=== PATIENT | male | born 1975 | race Caucasian/White ===

== ENCOUNTER 2017-08-04 23:42 | Emergency (ER) | payer BC, OTHER ==
--- NOTE | 2017-08-05 | EDM.PDOC ---
ED HPI GENERAL MEDICAL PROBLEM - General Chief Complaint: ENT Problem Stated Complaint: SICK Time Seen by Provider: 08/04/17 23:52 - History of Present Illness INITIAL COMMENTS - FREE TEXT/NARRATIVE: HISTORY AND PHYSICAL: History of present illness: The patient is a 42-year-old male with no stated pulmonary history who presents with complaints of a sore throat and nasal congestion without drainage body aches and cough that started 3 days ago. 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 Patient has not had any nausea vomiting or diarrhea no abdominal pain and no chest pain or shortness of breath. Patient has had some body aches but no fevers. He did not get his flu shot this year. Patient has been eating and drinking normally Review of systems: As per history of present illness and below otherwise all systems reviewed and negative. Past medical history: As per history of present illness and as reviewed below otherwise noncontributory. Surgical history: As per history of present illness and as reviewed below otherwise noncontributory. Social history: No reported history of drug or alcohol abuse. Family history: As per history of present illness and as reviewed below otherwise noncontributory. Physical exam: Gen.: Well-developed well-nourished man who is nontoxic and speaking without hoarse voice or breathlessness but he does have some nasal quality. HEENT: Atraumatic, normocephalic, pupils reactive, negative for conjunctival pallor or scleral icterus, mucous membranes moist, throat clear of exudates but there is posterior oropharyngeal erythema, there is no cervical adenopathy or nuchal rigidity, neck supple, nontender, trachea midline. There is no discrete sinus tenderness on palpation Lungs: Clear to auscultation, breath sounds equal bilaterally, chest nontender. No work of breathing stridor or wheezing Heart: S1S2, regular rate and rhythm no overt murmurs Abdomen: Soft, nondistended, nontender. NABS Pelvis: Deferred Genitourinary: Deferred. Rectal: Deferred. Extremities: Atraumatic, negative for cords or calf pain. Neurovascular unremarkable. Neuro: Awake, alert, oriented. Cranial nerves II through XII unremarkable. Cerebellum unremarkable. Motor and sensory unremarkable throughout. Exam nonfocal. Diagnostics: Rapid strep influenza Therapeutics: [] I discussed the testing results with the patient and despite the negative strep test he does have significant findings on exam but I will go ahead and treat. I will give him an antibiotic prescription for Augmentin from [facility]. Impression: Viral URI/pharyngitis Definitive disposition and diagnosis as appropriate pending reevaluation and review of above. 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 [No Known Home Meds] 08/04/17 [History] Past Medical History - Past Health History Medical/Surgical History: Denies Medical/Surgical History HEENT History: Reports: Impaired Vision Other HEENT History: glasses Cardiovascular History: Reports: None Other Cardiovascular History: episode of afib in 1989- no problems since Respiratory History: Reports: None Gastrointestinal History: Reports: None Genitourinary History: Reports: Renal Calculus Musculoskeletal History: Reports: None Neurological History: Reports: Migraines Psychiatric History: Reports: None Endocrine/Metabolic History: Reports: None Hematologic History: Reports: None Immunologic History: Reports: None Oncologic (Cancer) History: Reports: None Dermatologic History: Reports: None - Infectious Disease History Infectious Disease History: Reports: None - Past Surgical History Male Surgical History: Reports: Kidney Stone Extraction Other Musculoskeletal Surgeries/Procedures:: ACL surgery left Social & Family History - Family History Family Medical History: Noncontributory Cardiac: Reports: [place] - Tobacco Use Smoking Status *Q: Never Smoker Second Hand Smoke Exposure: No - Caffeine Use Caffeine Use: Reports: Soda, Tea - Alcohol Use Days Per Week of Alcohol Use: 0 - Recreational Drug Use Recreational Drug Use: No ED ROS GENERAL - Review of Systems Review Of Systems: ROS reveals no pertinent complaints other than HPI. ED EXAM, GENERAL - Physical Exam Exam: See Below (See dictation) Course - Vital Signs Last Recorded V/S: Last Vital Signs Temp 36.6 C 08/04/17 23:47 Pulse 69 08/04/17 23:47 Resp 18 08/04/17 23:47 BP 143/66 H 08/04/17 23:47 Pulse Ox 96 08/04/17 23:47 - Orders/Labs/Meds Orders: Active Orders 24 hr Category Date Time Status CULTURE STREP A CONFIRMATION [RM] Stat Lab 08/04/17 00:14 Results STREP SCRN A RAPID W CULT CONF [RM] Stat Lab 08/04/17 00:14 Results Departure - Departure Time of Disposition: 00:58 Disposition: Home, Self-Care 01 Condition: Good Clinical Impression: Pharyngitis Qualifiers: Pharyngitis/tonsillitis etiology: unspecified etiology Qualified Code(s): J02.9 - Acute pharyngitis, unspecified - Discharge Information Referrals: PCP,None [Primary Care Provider] - Forms: ED Department Discharge Additional Instructions: The following information is given to patients seen in the emergency department who are being discharged to home. This information is to outline your options for follow-up care. We provide all patients seen in our emergency department with a follow-up referral. The need for follow-up, as well as the timing and circumstances, are variable depending upon the specifics of your emergency department visit. If you don't have a primary care physician on staff, we will provide you with a referral. We always advise you to contact your personal physician following an emergency department visit to inform them of the circumstance of the visit and for follow-up with them and/or the need for any referrals to a consulting specialist. The emergency department will also refer you to a specialist when appropriate. This referral assures that you have the opportunity for followup care with a specialist. All of these measure are taken in an effort to provide you with optimal care, which includes your followup. Under all circumstances we always encourage you to contact your private physician who remains a resource for coordinating your care. When calling for followup care, please make the office aware that this follow-up is from your recent emergency room visit. If for any reason you are refused follow-up, please contact the [facility] emergency department at and ask to speak to the emergency department charge nurse. [facility] Primary care- Internal Medicine and Family [address] [address] Please push hydration eat soft diet. Use [id number] Tylenol and ibuprofen for fever and body aches and please taken by medics you have been given tonight until they're finished. He'll be given a prescription of Augmentin from [facility]. Please call and follow-up in the clinic in the next few days for reevaluation further care and return to ER as needed and as discussed - My Orders Last 24 Hours: My Active Orders 08/04/17 00:14 CULTURE STREP A CONFIRMATION [RM] Stat STREP SCRN A RAPID W CULT CONF [] Stat - Assessment/Plan Last 24 Hours: My Active Orders 08/04/17 00:14 CULTURE STREP A CONFIRMATION [RM] Stat STREP SCRN A RAPID W CULT CONF [] Stat
[2017-08-05 01:15] VITALS: BP 133/79
== END 2017-08-05 01:09 | disposition home or self-care (01) ==
LOC: MW.ED 23:42
DX: J02.9 Acute pharyngitis, unspecified (principal)
CPT/HCPCS: 87081; 87804; 87880; 99283

== ENCOUNTER 2018-02-02 19:04 | Emergency (ER) | payer BC, OTHER ==
--- NOTE | 2018-02-02 19:40 | EDM.PDOC ---
ED HPI GENERAL MEDICAL PROBLEM - General Chief Complaint: Lower Extremity Injury/Pain Stated Complaint: PAIN LT LEG Time Seen by Provider: 02/02/18 19:40 Source of Information: Reports: Patient History Limitations: Reports: No Limitations - History of Present Illness INITIAL COMMENTS - FREE TEXT/NARRATIVE: HISTORY AND PHYSICAL: History of present illness: Anderson is a 42-year-old male here with left lower extremity injury. He reports that approximately 30 minutes prior to his arrival to the ED he was playing basketball, shot a ball then pushed off his left foot. When he did this he felt a pop in his left Achilles tendon that brought him down. He has been able to walk on it since but reports "something is definitely wrong." He states the pain is minimal at this time. [] Review of systems: As per history of present illness and below otherwise all systems reviewed and negative. Past medical history: As per history of present illness and as reviewed below otherwise noncontributory. Surgical history: As per history of present illness and as reviewed below otherwise noncontributory. Social history: No reported history of drug or alcohol abuse. Family history: As per history of present illness and as reviewed below otherwise noncontributory. Physical exam: General: patient sitting comfortably in no acute distress HEENT: Atraumatic, normocephalic, pupils reactive, negative for conjunctival pallor or scleral icterus, mucous membranes moist, throat clear, neck supple, nontender, trachea midline. Lungs: Clear to auscultation, breath sounds equal bilaterally, chest nontender. Heart: S1S2, regular, negative for clicks, rubs, or JVD. Extremities: Normal ankle plantarflexion with calf squeeze negative for cords or calf pain. No tenderness to palpation along the achilles tendon, no body tenderness along medial and lateral malleoli or posterior calcaneous. Patient is able to bear weight on left foot and walk on heels. Neurovascular unremarkable. Neuro: Awake, alert, oriented. Cranial nerves II through XII unremarkable. Cerebellum unremarkable. Motor and sensory unremarkable throughout. Exam nonfocal. Notes: Diagnostics: [x-ray left ankle] Therapeutics: [] Impression: [Achilles tendinitis] Plan: [#1 Ice, elevate, and motrin as discussed #2 Wear CAM boot and use crutches as directed #3 Follow up with ortho #4 Return to ED as needed as discussed ] Definitive disposition and diagnosis as appropriate pending reevaluation and review of above. left ankle Pain Score (Numeric/FACES): 3 - Related Data Allergies Allergy/AdvReac Type Severity Reaction Status Date / Time No Known Allergies Allergy Verified 02/02/18 19:10 Home Meds: Home Meds . [No Known Home Meds] 08/04/17 [History] Past Medical History - Past Health History Medical/Surgical History: Denies Medical/Surgical History HEENT History: Reports: Impaired Vision Other HEENT History: glasses Cardiovascular History: Reports: None Other Cardiovascular History: episode of afib in 1989- no problems since Respiratory History: Reports: None Gastrointestinal History: Reports: None Genitourinary History: Reports: Renal Calculus Musculoskeletal History: Reports: None Neurological History: Reports: Migraines Psychiatric History: Reports: None Endocrine/Metabolic History: Reports: None Hematologic History: Reports: None Immunologic History: Reports: None Oncologic (Cancer) History: Reports: None Dermatologic History: Reports: None - Infectious Disease History Infectious Disease History: Reports: Chicken Pox - Past Surgical History HEENT Surgical History: Reports: None Male Surgical History: Reports: Kidney Stone Extraction Other Musculoskeletal Surgeries/Procedures:: ACL surgery left Social & Family History - Family History Family Medical History: Noncontributory Cardiac: Reports: [place] - Tobacco Use Smoking Status *Q: Never Smoker - Caffeine Use Caffeine Use: Reports: Tea - Recreational Drug Use Recreational Drug Use: No Review of Systems - Review of Systems Review Of Systems: ROS reveals no pertinent complaints other than HPI. ED EXAM, GENERAL - Physical Exam Exam: See Below (see dictatoin) Exam Limited By: No Limitations Course - Vital Signs Last Recorded V/S: Last Vital Signs Temp 36.2 C 02/02/18 19:12 Pulse 94 02/02/18 19:12 Resp 16 02/02/18 19:12 BP 147/89 H 02/02/18 19:12 Pulse Ox 98 02/02/18 19:12 - Orders/Labs/Meds Orders: Active Orders 24 hr Category Date Time Status Ankle Min 3V Lt [CR] Stat Exams 02/02/18 19:31 Taken Departure - Departure Time of Disposition: 20:09 Disposition: Home, Self-Care 01 Condition: Good Clinical Impression: Achilles tendinitis Qualifiers: Laterality: left Qualified Code(s): M76.62 - Achilles tendinitis, left leg - Discharge Information Referrals: PCP,None [Primary Care Provider] - Forms: ED Department Discharge Additional Instructions: The following information is given to patients seen in the emergency department who are being discharged to home. This information is to outline your options for follow-up care. We provide all patients seen in our emergency department with a follow-up referral. The need for follow-up, as well as the timing and circumstances, are variable depending upon the specifics of your emergency department visit. If you don't have a primary care physician on staff, we will provide you with a referral. We always advise you to contact your personal physician following an emergency department visit to inform them of the circumstance of the visit and for follow-up with them and/or the need for any referrals to a consulting specialist. The emergency department will also refer you to a specialist when appropriate. This referral assures that you have the opportunity for follow-up care with a specialist. All of these measure are taken in an effort to provide you with optimal care, which includes your follow-up. Under all circumstances we always encourage you to contact your private physician who remains a resource for coordinating your care. When calling for follow-up care, please make the office aware that this follow-up is from your recent emergency room visit. If for any reason you are refused follow-up, please contact the [facility] Emergency Department at and asked to speak to the emergency department charge nurse. [facility] [address] [place] [id number] [facility] - Orthopedic [facility] Professional Building [address] [place] [address], [address] [place] [address] #1 Ice, elevate, and motrin as discussed #2 Wear CAM boot and use crutches as directed #3 Follow up with ortho #4 Return to ED as needed as discussed - My Orders Last 24 Hours: My Active Orders 02/02/18 19:31 Ankle Min 3V Lt [CR] Stat - Assessment/Plan Last 24 Hours: My Active Orders 02/02/18 19:31 Ankle Min 3V Lt [CR] Stat
[2018-02-02 20:34] VITALS: BP 135/89
--- NOTE | 2018-02-03 12:59 | CR ---
EXAM DATE: 02/02/18 PATIENT'S AGE: 42 Patient: LORENZA GREWAL Facility: [place], [place] Site . Site : 1975 Study: XRay Extremity Left ankle [id number]/10/2018 7:50:26 PM Ordering Physician: Doctor Walker Final Report: INDICATION: Pain. Patient states that he thinks he injured Achilles tendon. TECHNIQUE: Ankle radiograph 3 views COMPARISON: None FINDINGS: Bones: Alignment is normal. No acute fractures or aggressive osseous lesions seen. Joint spaces: The visualized tibiotalar, subtalar, and midfoot joints are unremarkable in appearance. No joint effusion is seen. Soft tissues: Kager`s fat pad is normal in appearance. Distal Achilles tendon appears to extend normally to the posterior calcaneus insertion. No radiopaque foreign bodies are noted. IMPRESSION: 1. No acute osseous injuries are identified. 2. No acute avulsion of the Achilles tendon on the lateral view. Possible thickening of the distal Achilles tendon, suggesting possible Achilles tendinopathy. Consider dedicated MRI on nonemergent basis as clinically warranted. Dictated by Joseph Segura MD @ 02/02/2018 7:58:28 PM Dictated by: Joseph Segura MD @ 02/02/2018 19:58:31 (Electronic Signature) Report Signed by Proxy. KELLEN
== END 2018-02-02 20:28 | disposition home or self-care (01) ==
LOC: MW.ED 19:04
DX: M76.62 Achilles tendinitis, left leg (principal)
CPT/HCPCS: 73610-26-LT; 73610-LT; 99283

== ENCOUNTER 2018-02-08 08:33 | Day surgery (SDC) | payer BC, OTHER ==
[~2018-02-08 08:33] MED LIST: Bupivacaine 0.5% 30 ML SDV ONE; Lactated Ringers 1,000 ML IV SCH
[2018-02-08] MEDS ORDERED: Lidocaine 2% 5 ML SDV ONE (09:27)
[2018-02-08] MEDS ORDERED: Propofol 200 MG/20 ML SDV ONE (09:27)
[2018-02-08] MEDS ORDERED: fentaNYL 250 MCG/5 ML SDV ONE (09:28)
[2018-02-08] MEDS ORDERED: Midazolam 1 MG/ML 2 ML SDV ONE (09:28)
[2018-02-08] MEDS ORDERED: ceFAZolin/Dextrose,Iso-Osmotic 2 GM/50 ML Duplex Bag IV ONE (09:34)
[2018-02-08] MEDS ORDERED: Acetaminophen/HYDROcodone 325-10 MG Tab PO PRN (09:54)
[2018-02-08] MEDS ORDERED: Ketorolac 10 MG Tab PO PRN (09:54)
[2018-02-08] MEDS ORDERED: Sodium Chloride 0.9% 10 ML Syringe FLUSH PRN (09:55)
[2018-02-08] MEDS ORDERED: Sodium Chloride 0.9% 2.5 ML Syringe FLUSH PRN (09:55)
[2018-02-08] MEDS ORDERED: Bupivacaine 0.25% 10 ML SDV ONE (09:56)
[2018-02-08] MEDS ORDERED: Sugammadex Sodium 200 MG/2 ML VIAL ONE (09:58)
[2018-02-08] MEDS ORDERED: Lactated Ringers 1,000 ML IV SCH (10:00)
--- NOTE | 2018-02-08 10:05 | PCM.PREANE ---
Preanesthetic Assessment - Procedure Proposed Procedure: Achilles tendon repair (Left) - Anesthesia/Transfusion/Family Hx Anesthesia History: Prior Anesthesia Without Reaction Other Type of Anesthesia Reaction Comment: "nausea with last knee surgery" Family History of Anesthesia Reaction: No Transfusion History: No Prior Transfusion(s) Intubation History: Unknown - Review of Systems General: No Symptoms Pulmonary: No Symptoms Cardiovascular: No Symptoms Gastrointestinal: No Symptoms Neurological: Gait Disturbance (pain in ankle in Boot) Other: Reports: None - Physical Assessment NPO Status Date: 02/07/18 NPO Status Time: 23:00 O2 Sat by Pulse Oximetry: 96 Respiratory Rate: 16 Vital Signs: Last Vital Signs Temp 98.2 F 02/08/18 08:55 Pulse 77 02/08/18 08:55 Resp 16 02/08/18 08:55 BP 159/95 H 02/08/18 08:55 Pulse Ox 96 02/08/18 08:55 Height: 5 ft 11 in Weight: 230 lb ASA Class: 2 Mental Status: Alert & Oriented x3 Airway Class: Mallampati = 2 Dentition: Reports: Normal Dentition Thyro-Mental Finger Breadths: 3 Mouth Opening Finger Breadths: 2 ROM/Head Extension: Limited/Partial Lungs: Clear to Auscultation, Normal Respiratory Effort Cardiovascular: Regular Rate, Regular Rhythm, No Murmurs - Allergies Allergies/Adverse Reactions: Allergies Allergy/AdvReac Type Severity Reaction Status Date / Time No Known Allergies Allergy Verified 02/04/18 13:18 - Blood Blood Available: No Product(s) Available: None - Anesthesia Plan Pre-Op Medication Ordered: None - Acknowledgements Anesthesia Type Planned: General Anesthesia (OET since in prone position) Pt an Appropriate Candidate for the Planned Anesthesia: Yes Alternatives and Risks of Anesthesia Discussed w Pt/Guardian: Yes Pt/Guardian Understands and Agrees with Anesthesia Plan: Yes PreAnesthesia Questionnaire - Past Health History Medical/Surgical History: Denies Medical/Surgical History HEENT History: Reports: Impaired Vision Other HEENT History: glasses Cardiovascular History: Reports: Arrhythmia Other Cardiovascular History: episode of afib in 1989- hx cardiac conversion, no problems since Respiratory History: Reports: None Gastrointestinal History: Reports: Other (See Below) Other Gastrointestinal History: occasional heartburn Genitourinary History: Reports: Renal Calculus Musculoskeletal History: Reports: Arthritis Neurological History: Reports: Migraines Psychiatric History: Reports: None Endocrine/Metabolic History: Reports: Obesity/BMI 30+ Hematologic History: Reports: None Immunologic History: Reports: None Oncologic (Cancer) History: Reports: None Dermatologic History: Reports: None - Infectious Disease History Infectious Disease History: Reports: Chicken Pox - Past Surgical History Head Surgeries/Procedures: Reports: None HEENT Surgical History: Reports: Oral Surgery Male Surgical History: Reports: Kidney Stone Extraction Musculoskeletal Surgical History: Reports: Arthroscopic Knee Other Musculoskeletal Surgeries/Procedures:: ACL surgery left - SUBSTANCE USE Smoking Status *Q: Never Smoker Recreational Drug Use History: No - HOME MEDS Home Medications: Home Meds Acetaminophen [Tylenol Extra Strength] 2 tab PO ASDIRECTED PRN 02/04/18 [History ] Calcium Carbonate [Tums] 1 tab.chew CHEW ASDIRECTED PRN 02/04/18 [History] - CURRENT (IN HOUSE) MEDS Current Meds: Current Medications Hydrocodone Bitart/Acetaminophen ([place] 325-10 Mg) 1 - 2 tab PO Q4H PRN PRN Reason: Pain Lactated Ringer's (Ringers, Lactated) 1,000 mls @ 125 mls/hr IV ASDIRECTED [facility] Last Admin: 02/08/18 09:10 Dose: 125 mls/hr Lactated Ringer's (Ringers, Lactated) 1,000 mls @ 125 mls/hr IV ASDIRECTED [facility] Ketorolac Tromethamine (Toradol) 10 mg PO Q6H PRN PRN Reason: Pain Stop: 02/13/18 09:55 Sodium Chloride (Saline Flush) 10 ml FLUSH ASDIRECTED PRN PRN Reason: Keep Vein Open Sodium Chloride (Saline Flush) 2.5 ml FLUSH ASDIRECTED PRN PRN Reason: Keep Vein Open Discontinued Medications Bupivacaine HCl (Marcaine 0.5%) Confirm Administered Dose 30 ml .ROUTE .STK-MED ONE Stop: 02/07/18 00:22 Bupivacaine HCl (Sensorcaine-Mpf 0.25%) Confirm Administered Dose 20 ml .ROUTE .STK-MED ONE Stop: 02/08/18 09:57 Cefazolin Sodium/Dextrose (Ancef) Confirm Administered Dose 2 gm IV .STK-MED ONE Stop: 02/08/18 09:35 Fentanyl (Sublimaze) Confirm Administered Dose 250 mcg .ROUTE .STK-MED ONE Stop: 02/08/18 09:29 Lidocaine (Xylocaine-Mpf 2%) Confirm Administered Dose 10 ml .ROUTE .STK-MED ONE Stop: 02/08/18 09:28 Midazolam HCl (Versed 1 Mg/Ml) Confirm Administered Dose 2 mg .ROUTE .STK-MED ONE Stop: 02/08/18 09:29 Propofol (Diprivan 20 Ml) Confirm Administered Dose 400 mg .ROUTE .STK-MED ONE Stop: 02/08/18 09:28 Sugammadex Sodium ([place]) Confirm Administered Dose 200 mg .ROUTE .STK-MED ONE Stop: 02/08/18 09:59
[2018-02-08] MEDS ORDERED: fentaNYL 100 MCG/2 ML SDV ONE (10:48)
[2018-02-08] MEDS ORDERED: fentaNYL 100 MCG/2 ML SDV IVPUSH PRN (11:15)
--- NOTE | 2018-02-08 12:00 | PCM.OPNOTE ---
- General Post-Op/Procedure Note Date of Surgery/Procedure: 02/08/18 Operative Procedure(s): left Achilles tendon repair Post-Op Diagnosis: L Achilles tendon rupture Anesthesia Technique: General ET Tube Primary Surgeon: Fely Frias EBL in mLs: 10 Condition: Good Free Text/Narrative:: tt=37 min #[id number]
--- NOTE | 2018-02-08 12:39 | PCM.POSTAN ---
POST ANESTHESIA ASSESSMENT - MENTAL STATUS Mental Status: Alert, Oriented - VITAL SIGNS Pulse Rate: 68 SaO2: 93 (Room Air) Resp Rate: 11 Blood Pressure: 138/80 - RESPIRATORY Respiratory Status: Respiratory Rate WNL, Airway Patent, O2 Saturation Stable - CARDIOVASCULAR CV Status: Pulse Rate WNL, Blood Pressure Stable - GASTROINTESTINAL GI Status: No Symptoms - PAIN Pain Score: 4 - POST OP HYDRATION Hydration Status: Adequate & Stable
--- NOTE | 2018-02-08 13:00 | OR ---
SURGEON: Fely Frias MD DATE OF PROCEDURE: 02/08/2018 PREOPERATIVE DIAGNOSIS: Left Achilles tendon rupture. POSTOPERATIVE DIAGNOSIS: Left Achilles tendon rupture. PROCEDURE: Open repair of left Achilles tendon. NURSE PARALEGAL: Tamie Wayne RN. ANESTHESIA: General. ESTIMATED BLOOD LOSS: 10 mL. TOURNIQUET TIME: 37 minutes. COMPLICATIONS: None. DVT PROPHYLAXIS: Not indicated. IMPLANTS USED: None. 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 An MRI did confirm a rupture of the Achilles tendon. At that time, I did recommend surgical intervention. The risks and goals of the procedure were discussed with the patient and were documented preoperatively. He agreed to proceed. DESCRIPTION OF THE PROCEDURE: THE patient was properly identified and brought to the operating room. General anesthesia was administered on the cart. A well-padded tourniquet was applied to the left lower extremity. He was then placed into a prone position on the operating room table. Bolsters were used to keep the intraabdominal contents free. His arms were kept at his side with support under his shoulders. The left lower extremity was then prepped in standard fashion using ChloraPrep solution. It was then sterilely draped. A time-out was performed to ensure correct site and procedure. Preoperative antibiotics were given. The surgical site had been marked preoperatively. An Esmarch was used to exsanguinate the left lower extremity and the tourniquet was inflated to 250 mmHg. The defect was palpated over the site of the Achilles tendon rupture. He did have a positive Mahoney sign. An incision was made in a slightly medial position, centered over the defect. Sharp incision was used down to the level of the paratenon. The rupture was then identified. The paratenon was opened over the proximal and distal aspects of the tear. The wound was then copiously irrigated to remove any residual hematoma. There was a complete rupture. No remaining fibers were intact. The ends were freshened. Overall, the tendon quality appeared good. #2 FiberWire was then placed into the proximal and distal ends using modified Krackow suture. Four limbs were placed through each tendon, which helped tubularize the ends as well. The tension on the opposite leg was then checked. He was placed in a slightly plantar flexed position and the proximal and distal limbs were tied together. He was taken through a range of motion. I was able to get him to neutral dorsiflexion. Two additional interrupted sutures were placed using #2 FiberWire. The repair was then reinforced with a running 0 Vicryl. The wound was then copiously irrigated with saline solution. The paratenon was reapproximated as much as possible over the tendon using 2-0 Vicryl. Tourniquet was deflated. No excess bleeding was noted. The subcutaneous tissues were closed with 2-0 and 3-0 Monocryl. The skin was closed with luis. Xeroform gauze was placed over the wound and a bulky dressing was applied. He was placed in a well-padded posterior splint with the foot held in approximately 5 degrees of dorsiflexion. He was then transferred back to the operating room cart. He was brought to recovery room in stable condition. All needle and sponge counts were correct. SHARON / JERRY /[id number]
--- NOTE | 2018-02-08 17:28 | PCM48HPAN ---
Post Anesthesia Note - EVALUATION WITHIN 48HRS OF ANESTHETIC Vital Signs in Normal Range: Yes Patient Participated in Evaluation: Yes Respiratory Function Stable: Yes Airway Patent: Yes Cardiovascular Function Stable: Yes Hydration Status Stable: Yes Pain Control Satisfactory: Yes Nausea and Vomiting Control Satisfactory: Yes Mental Status Recovered: Yes Pulse Rate: 68 Resp Rate: 16 Blood Pressure: 138/80 - COMMENTS/OBSERVATIONS Free Text/Narrative:: nausea abated
[2018-02-08 17:29] VITALS: BP 138/80
== END 2018-02-08 14:50 | disposition home or self-care (01) ==
LOC: MW.SDS 08:33
PROVIDERS: ATTEND Orthopaedic Surgery
DX: S86.012A Strain of left Achilles tendon, initial encounter (principal); E66.9 Obesity, unspecified; Y93.67 Activity, basketball
CPT/HCPCS: 27650; J0690; J2250; J2704; J3010; J3490; J7120

== ENCOUNTER 2020-03-04 17:50 | Emergency (ER) | payer BC ==
--- NOTE | 2020-03-04 18:08 | EDM.PDOC ---
ED HPI GENERAL MEDICAL PROBLEM - General Chief Complaint: General Stated Complaint: BACK OF HEAD PAIN Time Seen by Provider: 03/04/20 17:55 Source of Information: Reports: Patient History Limitations: Reports: No Limitations - History of Present Illness INITIAL COMMENTS - FREE TEXT/NARRATIVE: HISTORY AND PHYSICAL: History of present illness: Patient is a 45-year-old male who presents to the emergency room with complaints of scalp pain. He states this morning he noticed a sharp stabbing pain that will occur briefly but every 20 to 30 seconds. He is concerned that he may have a dermatitis or scalp "pimple". He has had similar episodes of this in the past, describing 3 separate instances where he has experienced the same discomfort. Last episode was approximately 5 years ago, reporting they gave him Toradol and "something for nerve pain". He was diagnosed with cluster headaches. Has had multiple CTs in the past, states "I don't want any more imagining". Does NOT describe this as the worst headache of his life. He denies any fever, chills, neck pain/stiffness, visual changes, slurred speech, weakness or neurological deficits. Patient denies syncope or near syncope, chest pain, back pain, shortness of breath or cough. Denies any abdominal pain, nausea, vomiting, diarrhea, constipation or dysuria. Has not noted any blood in urine or stool. Patient has been eating and drinking appropriately. Past medical history of cluster migraine headaches and hypertension. Review of systems: As per history of present illness and below otherwise all systems reviewed and negative. Past medical history: As per history of present illness and as reviewed below otherwise noncontributory. Surgical history: As per history of present illness and as reviewed below otherwise noncontributory. Social history: See social history for further information Family history: As per history of present illness and as reviewed below otherwise noncontributory. Physical exam: General: Well-developed and well-nourished 45-year-old male. Alert and oriented. Nontoxic-appearing and in no acute distress. HEENT: Atraumatic, normocephalic, pupils equal and reactive bilaterally, negative for conjunctival pallor or scleral icterus, mucous membranes moist, TMs normal bilaterally, throat clear, neck supple, nontender, trachea midline. No drooling or trismus noted. No meningeal signs. No hot potato voice noted. Lungs: Clear to auscultation, breath sounds equal bilaterally, chest nontender. Heart: S1S2, regular rate and rhythm without overt murmur Abdomen: Soft, nondistended, nontender. Negative for masses or hepatosplenomegaly. Negative for costovertebral tenderness. Pelvis: Stable nontender. C-spine/Back: No pinpoint vertebral tenderness upon palpation. No crepitus, step-offs or obvious deformities. Patient is ambulatory into the emergency room without difficulty or deficit. Able to rock back on heels and walk on toes. Denies any urinary or fecal incontinence. Denies any numbness, tingling or saddle paresthesia. No concerns of serious infection, fracture or cord compression, or cauda equina syndrome. Deep tendon reflexes brisk bilaterally. Skin: Intact, warm, dry. No lesions or rashes noted. Hematologic: No petechiae or purpra. Mucosa appropriate color and normal nail bed color and refill. Extremities: Atraumatic, moves all extremities per self without difficulty or deficits, negative for cords or calf pain. Neurovascular unremarkable. Neuro: Awake, alert, oriented. Cranial nerves II through XII unremarkable. Cerebellum unremarkable. Motor and sensory unremarkable throughout. Exam nonfocal. Notes: GCS 15, NIH O. Full neurological exam was completed, unremarkable. We did discuss doing diagnostics such as a head CT which he declines regardless of thorough education/conversation. After discussing labs and CT with the patient he states he would prefer to do Toradol IM injection. I did offer to do intranasal lidocaine which he declines. Dr Patterson did also evaluate this patient, he agrees with plan of care. Patient see his primary care at [facility] and prefers to follow up with someone at the clinic tomorrow. Supportive care measures were reviewed and discussed. Voices understanding and is agreeable to plan of care. Denies any further questions or concerns at this time. Diagnostics: Declines Therapeutics: Toradol IM Prescription: None Impression: Headache Plan: 1. You were given a shot of Toradol while here. Please call [facility] tomorrow to set up an expedited follow up appointment. If your symptoms should worsen, new symptoms develop or any of the signs and symptoms we discussed should arise please return to the emergency room or call 911 (if needed). 2. Alternate Tylenol and/or Ibuprofen as needed and directed. Definitive disposition and diagnosis as appropriate pending reevaluation and review of above. back of head Pain Score (Numeric/FACES): 6 - Related Data Allergies Allergy/AdvReac Type Severity Reaction Status Date / Time No Known Allergies Allergy Verified 03/04/20 18:08 Home Meds: Home Meds lisinopriL [Lisinopril] 10 mg PO DAILY 03/04/20 [History] Past Medical History - Past Health History Medical/Surgical History: Denies Medical/Surgical History HEENT History: Reports: Impaired Vision Other HEENT History: glasses Cardiovascular History: Reports: Arrhythmia Other Cardiovascular History: episode of afib in 1989- hx cardiac conversion, no problems since Respiratory History: Reports: None Gastrointestinal History: Reports: Other (See Below) Other Gastrointestinal History: occasional heartburn Genitourinary History: Reports: Renal Calculus Musculoskeletal History: Reports: Arthritis Neurological History: Reports: Migraines Psychiatric History: Reports: None Endocrine/Metabolic History: Reports: Obesity/BMI 30+ Hematologic History: Reports: None Immunologic History: Reports: None Oncologic (Cancer) History: Reports: None Dermatologic History: Reports: None - Infectious Disease History Infectious Disease History: Reports: Chicken Pox - Past Surgical History Head Surgeries/Procedures: Reports: None HEENT Surgical History: Reports: Oral Surgery Cardiovascular Surgical History: Reports: None GI Surgical History: Reports: None Male Surgical History: Reports: Kidney Stone Extraction Endocrine Surgical History: Reports: None Neurological Surgical History: Reports: None Musculoskeletal Surgical History: Reports: Arthroscopic Knee Other Musculoskeletal Surgeries/Procedures:: ACL surgery left Social & Family History - Family History Family Medical History: Noncontributory Cardiac: Reports: [facility] - Caffeine Use Caffeine Use: Reports: Tea ED ROS GENERAL - Review of Systems Review Of Systems: Comprehensive ROS is negative, except as noted in HPI. ED EXAM, GENERAL - Physical Exam Exam: See Below (See dictation) Course - Vital Signs Last Recorded V/S: Last Vital Signs Temp 96.8 F L 03/04/20 18:07 Pulse 60 03/04/20 18:07 Resp 18 03/04/20 18:07 BP 150/90 H 03/04/20 18:07 Pulse Ox 97 03/04/20 18:07 - Orders/Labs/Meds Meds: Medications Discontinued Medications Generic Name Dose Route Start Last Admin Trade Name Freq PRN Reason Stop Dose Admin Ketorolac Tromethamine 60 mg 03/04/20 18:24 Toradol IM 03/04/20 18:25 ONETIME ONE Departure - Departure Time of Disposition: 18:47 Disposition: Home, Self-Care 01 Clinical Impression: Headache Qualifiers: Headache type: unspecified Headache chronicity pattern: episodic headache Intractability: not intractable Qualified Code(s): R51 - Headache - Discharge Information Instructions: Cluster Headache, [id number] Referrals: [facility] [Primary Care Provider] - Forms: ED Department Discharge Additional Instructions: The following information is given to patients seen in the emergency department who are being discharged to home. This information is to outline your options for follow-up care. We provide all patients seen in our emergency department with a follow-up referral. The need for follow-up, as well as the timing and circumstances, are variable depending upon the specifics of your emergency department visit. If you don't have a primary care physician on staff, we will provide you with a referral. We always advise you to contact your personal physician following an emergency department visit to inform them of the circumstance of the visit and for follow-up with them and/or the need for any referrals to a consulting specialist. The emergency department will also refer you to a specialist when appropriate. This referral assures that you have the opportunity for follow-up care with a specialist. All of these measure are taken in an effort to provide you with optimal care, which includes your follow-up. Under all circumstances we always encourage you to contact your private physician who remains a resource for coordinating your care. When calling for follow-up care, please make the office aware that this follow-up is from your recent emergency room visit. If for any reason you are refused follow-up, please contact the [facility] Emergency Department at and asked to speak to the emergency department charge nurse. [facility] [address] [place] [id number] [facility] [address] [place] [id number] Thank you for choosing the [facility] emergency department in [place] for your medical needs today. It was a pleasure caring for you. Today you were seen in the emergency department for headache/scalp pain. 1. You were given a shot of Toradol while here. Please call [facility] tomorrow to set up an expedited follow up appointment. If your symptoms should worsen, new symptoms develop or any of the signs and symptoms we discussed should arise please return to the emergency room or call 911 (if needed). 2. Alternate Tylenol and/or Ibuprofen as needed and directed. Sepsis Event Note (ED) - Focused Exam Vital Signs: Vital Signs Temp Pulse Resp BP Pulse Ox 03/04/20 18:07 96.8 F L 60 18 150/90 H 97
[2020-03-04 18:09] VITALS: BP 150/90; PULSE 60
--- NOTE | 2020-03-04 18:21 | PCM.SN.2 ---
- Free Text/Narrative Note: Patient was presented to be by the mid-level provider, who sees patients independently as a licensed independent practitioner by [facility] and [facility] law. Up until the point that my assistance was requested, the mid-level provider has been solely and independently caring for this patient and they are responsible for all aspects of care including performing the history and physical, formulating medical decision making, ordering medications, and ordering and evaluating testing. I have personally and independently seen and evaluated the patient at bedside and, if available, have spoken with the with the family. I agree with the history, physical, medical decision making, and plan of treatment as documented by the mid-level provider. I have performed the medical decision making for this patient, including assessing the results of all diagnostic testing and I have instructed the mid-level provider to document the results and carry through with the treatment plan that I deemed appropriate. The final completed note is the responsibility of the mid-level provider. If needed, any other comments, a focused physical examination, or my own medical decision making are documented below. In brief, this is a 45-year-old male with a past medical history of hypertension and cluster headaches presenting with headache. 1 day history of pain to the right side of the occiput radiating around to the right orbit. Patient has had this several years ago and was diagnosed with a cluster headache. He states that his symptoms today are identical to what he has had with his prior cluster headaches. Vital signs reviewed. Nursing notes reviewed. Constitutional: Awake, alert, non-distressed. Head: Normocephalic, atraumatic. Eyes: EOMI, conjunctiva normal, no discharge, no scleral icterus. Ears, Nose, Throat: External ears and nose normal, moist oral mucosa. Cardiovascular: 2+ radial pulse, capillary refill less than 2 seconds. Pulmonary: normal work of breathing, no accessory muscle use. Abdomen/GI: Soft, nontender, nondistended, no guarding or rigidity, no masses. Musculoskeletal: No deformities. Integumentary: Appropriate color for ethnicity, warm, dry, no pallor or jaundice, no rash. Neurologic: Awake, alert, and oriented x3. No facial droop or dysarthria. Supple neck with normal range of motion. No pronator drift. Normal [id number] and [id number]. 5/5 strength in all extremities. Sensation intact to light touch x4. Normal gait. Normal visual nolen, no field cuts. Able to sit, stand, and ambulate without assistance. Psychiatric: Appropriate mood and affect, normal thought process. Patient was offered both a head CT and multiple analgesic options including a sphenopalatine nerve block, which the patient refused. He is requesting to be discharged home at this point and will follow up with his private physicians. Discharged in good condition with return precautions.
[2020-03-04] MEDS ORDERED: Ketorolac 60 MG/2 ML SDV IM ONE (18:24)
== END 2020-03-04 19:35 | disposition home or self-care (01) ==
LOC: MW.ED 17:50
DX: R51 Headache (principal); E66.9 Obesity, unspecified; Z68.33 Body mass index [BMI] 33.0-33.9, adult
CPT/HCPCS: 96372; 99284; J1885; 99282

== ENCOUNTER 2022-06-28 02:14 | Emergency (ER) | payer BC, OTHER ==
[2022-06-28 02:39] VITALS: BP 150/93; PULSE 61
== END 2022-06-28 03:00 | disposition home or self-care (01) ==
LOC: MW.ED 02:14
DX: K64.9 Unspecified hemorrhoids (principal); E66.9 Obesity, unspecified; Z68.33 Body mass index [BMI] 33.0-33.9, adult
CPT/HCPCS: 99283

== ENCOUNTER 2022-10-10 07:27 | Day surgery (SDC) | payer BC, OTHER ==
[~2022-10-10 07:27] MED LIST changes: -Bupivacaine 0.5% 30 ML SDV ONE
[2022-10-10] MEDS ORDERED: Propofol 200 MG/20 ML SDV ONE ×2 (07:40→07:41)
[2022-10-10] MEDS ORDERED: Ondansetron 4 MG/2 ML SDV ONE (08:14)
[2022-10-10 09:42] VITALS: PULSE 79
[2022-10-10] MEDS ORDERED: Lactated Ringers 1,000 ML IV SCH (09:45)
[2022-10-10 10:19] VITALS: BP 121/58
== END 2022-10-10 10:07 | disposition home or self-care (01) ==
LOC: MW.SDS 07:27
PROVIDERS: ATTEND Surgery
DX: K57.30 Diverticulosis of large intestine without perforation or abscess without bleeding (principal); G43.009 Migraine without aura, not intractable, without status migrainosus; I10 Essential (primary) hypertension; M19.90 Unspecified osteoarthritis, unspecified site; E66.9 Obesity, unspecified; Z68.34 Body mass index [BMI] 34.0-34.9, adult; Z98.890 Other specified postprocedural states; Z79.899 Other long term (current) drug therapy
CPT/HCPCS: J2405; J2704; J7120

== ENCOUNTER 2023-01-14 14:26 | Emergency (ER) | payer BC, OTHER ==
[2023-01-14] MEDS ORDERED: Lactated Ringers 1,000 ML IV ONE ×2 (14:37→16:34)
[2023-01-14] MEDS ORDERED: Sodium Chloride 0.9% 10 ML Syringe FLUSH PRN (14:37)
[2023-01-14] MEDS ORDERED: Sodium Chloride 0.9% 2.5 ML Syringe FLUSH PRN (14:37)
[2023-01-14] MEDS ORDERED: Metoprolol Tartrate 2.5 MG in Sodium Chloride 0.9% 50 ML IV ONE (15:34)
[2023-01-14 15:38] LABS: BASOPHILS ABSOLUTE AUTO 0.1 K/uL (0.0-0.1); BASOPHILS PERCENT AUTO 0.6 % (0.0-1.5); EOSINOPHILS ABSOLUTE AUTO 0.3 K/uL (0.0-0.7); HEMATOCRIT 49.1 % (38.0-50.0); HEMOGLOBIN 16.5 g/dL (13.0-17.0); LYMPHOCYTES ABSOLUTE AUTO 1.8 K/uL (0.6-2.4); LYMPHOCYTES PERCENT AUTO 16.6 % (16.0-40.0); MEAN CORPUSCULAR HEMOGLOBIN 30.1 pg (27.0-32.0); MEAN CORPUSCULAR HGB CONC 33.6 g/dL (31.0-37.0); MEAN CORPUSCULAR VOLUME 89.4 fL (80.0-98.0); MONOCYTES PERCENT AUTO 9.2 % (0.0-15.0); NEUTROPHILS ABSOLUTE AUTO 7.5 K/uL (1.4-5.7); NEUTROPHILS PERCENT AUTO 70.6 % (48.0-80.0); NRBC ABSOLUTE 0 K/uL; PLATELET COUNT,PLT 334 K/uL (150-400); RED BLOOD CELL COUNT 5.49 M/uL (4.50-5.90); WHITE BLOOD CELL COUNT,WBC 10.64 K/uL (4.0-11.0)
[2023-01-14] MEDS ORDERED: Metoprolol Tartrate 5 MG/5 ML SDV IVPUSH ONE ×2 (15:42→16:04)
[2023-01-14 16:17] LABS: D-DIMER QUANTITATIVE 0.36 mg/L FEU (0.00-0.50); INR 1.02 (0.86-1.11); PTT,PARTIAL THROMBOPLSTIN TIME 26.3 SEC (23.9-30.7)
[2023-01-14 16:32] LABS: LACTIC ACID 1.7 mmol/L (0.4-2.0)
[2023-01-14 16:40] LABS: A/G RATIO 0.9 (0.9-1.6); ALANINE AMINOTRANSFERASE,ALT 31 IU/L (14-63); ALBUMIN 3.2 g/dL (3.4-5.0); ALKALINE PHOSPHATASE 66 U/L (46-116); ASPARTATE AMNIOTRANSFERASE,AST 14 IU/L (15-37); BILIRUBIN TOTAL 0.3 mg/dL (0.2-1.0); BLOOD UREA NITROGEN,BUN 16 mg/dL (7.0-18.0); CALCIUM 8.5 mg/dL (8.5-10.1); CARBON DIOXIDE,CO2 23.3 mmol/L (21.0-32.0); CHLORIDE,CL 108 mmol/L (98-107); CREATININE 1.1 mg/dL (0.8-1.3); EST CRCL DRUG DOSING (CG) 86.52 mL/min; GLUCOSE RANDOM 100 mg/dL (74-106); PROTEIN TOTAL,TP 6.6 g/dL (6.4-8.2); SODIUM,NA 142 mmol/L (136-148); TSH ULTRASENSITIVE 1.88 uIU/mL (0.36-3.74)
[2023-01-14 16:41] LABS: ESTIMATED GFR 82 mL/min (>60); ETHANOL BLOOD MEDICAL < 3.0 mg/dL
[2023-01-14] MEDS ORDERED: Digoxin 500 MCG/2 ML Amp IVPUSH ONE (18:12)
[2023-01-14 18:20] VITALS: BP 113/63
[2023-01-14 18:41] VITALS: PULSE 148
== END 2023-01-14 19:15 ==
LOC: MW.ED 14:26
DX: I48.91 Unspecified atrial fibrillation (principal); I10 Essential (primary) hypertension; Z79.899 Other long term (current) drug therapy
CPT/HCPCS: 36415; 71045; 80053; 80307; 83605; 83735; 84443; 84484; 85025; 85379; 85610; 85730; 93005; 96361; 96374; 96375; 99285; J1160; J3490; J7120

== ENCOUNTER 2023-05-06 18:06 | Emergency (ER) | payer BC ==
[2023-05-06] MEDS ORDERED: Oxymetazoline 0.05% Nasal Spray 30 ML Bottle NAS STA (19:00)
[2023-05-06 21:54] VITALS: BP 129/87; PULSE 92
== END 2023-05-06 21:55 | disposition home or self-care (01) ==
LOC: MW.ED 18:06
DX: R04.0 Epistaxis (principal); I48.91 Unspecified atrial fibrillation; I10 Essential (primary) hypertension; E78.00 Pure hypercholesterolemia, unspecified; Z79.899 Other long term (current) drug therapy; Z79.82 Long term (current) use of aspirin
CPT/HCPCS: 30901; 93005; 99283; A9270; 93010

== ENCOUNTER 2023-10-25 10:43 | Emergency (ER) | payer BC, OTHER ==
[2023-10-25 11:07] VITALS: BP 147/86; PULSE 58
[2023-10-25 12:23] LABS: CORONAVIRUS COVID-19 NAA NEGATIVE (NEGATIVE); INFLUENZA A NAA NEGATIVE (NEGATIVE); INFLUENZA B NAA NEGATIVE (NEGATIVE); RESPIRATORY SYNCYTIAL VIR NAA NEGATIVE (NEGATIVE)
== END 2023-10-25 12:55 | disposition home or self-care (01) ==
LOC: MW.ED 10:43
DX: J98.8 Other specified respiratory disorders (principal); I48.91 Unspecified atrial fibrillation; Z79.01 Long term (current) use of anticoagulants; Z75.8 Other problems related to medical facilities and other health care; Z79.899 Other long term (current) drug therapy
CPT/HCPCS: 0241U; 71046; 87651; 99283

== ENCOUNTER 2023-12-25 06:19 | Emergency (ER) | payer BC, OTHER ==
[2023-12-25 06:36] LABS: BASOPHILS PERCENT AUTO 0.7 % (0.0-1.0); EOSINOPHILS ABSOLUTE AUTO 0.23 K/uL (0.00-0.45); EOSINOPHILS PERCENT AUTO 1.6 % (0.0-6.0); HEMATOCRIT 45.8 % (42.0-52.0); IMMATURE GRAN ABSOLUTE AUTO 0.06 K/uL (0.00-0.05); IMMATURE GRAN PERCENT AUTO 0.4 % (0.0-0.4); LYMPHOCYTES ABSOLUTE AUTO 3.38 K/uL (1.00-4.80); MEAN CORPUSCULAR HEMOGLOBIN 30.9 pg (28.0-32.0); MEAN CORPUSCULAR HGB CONC 32.8 g/dL (32.0-36.0); MEAN CORPUSCULAR VOLUME 94.2 fL (83.0-99.0); MEAN PLATELET VOLUME 9.5 fL (9.4-12.4); MONOCYTES ABSOLUTE AUTO 1.16 K/uL (0.00-0.80); MONOCYTES PERCENT AUTO 8.2 % (0.0-8.0); NEUTROPHILS ABSOLUTE AUTO 9.15 K/uL (1.80-7.70); NEUTROPHILS PERCENT AUTO 65.1 % (41.0-71.0); PLATELET COUNT,PLT 246 K/uL (150-400); RED BLOOD CELL COUNT 4.86 M/uL (4.52-5.90); WHITE BLOOD CELL COUNT,WBC 14.08 K/uL (3.9-11.3)
[2023-12-25] MEDS: Sodium Chloride 0.9% 10 ML Syringe FLUSH PRN (06:39)
[2023-12-25] MEDS: Sodium Chloride 0.9% 2.5 ML Syringe FLUSH PRN (06:39)
[2023-12-25] MEDS: Morphine 4 MG/ML Syringe IVPUSH ONE (06:47)
[2023-12-25 07:04] LABS: A/G RATIO 0.9 (0.9-1.6); ALBUMIN 3.3 g/dL (3.4-5.0); BILIRUBIN TOTAL 0.8 mg/dL (0.2-1.0); CALCIUM 8.3 mg/dL (8.5-10.1); CARBON DIOXIDE,CO2 28.5 mmol/L (21.0-32.0); CREATININE 1.2 mg/dL (0.8-1.3); EST CRCL DRUG DOSING (CG) 78.44 mL/min; POTASSIUM,K 3.8 mmol/L (3.5-5.1); PROTEIN TOTAL,TP 6.8 g/dL (6.4-8.2)
[2023-12-25] MEDS: Aspirin 81 MG Tab.Chew PO ONE (08:10)
[2023-12-25] MEDS: Sodium Chloride 0.9% 500 ML IV SCH (08:18)
[2023-12-25] MEDS: Nitroglycerin 0.4 MG Tab.SL SL ONE (08:46)
[2023-12-25 09:37] VITALS: BP 119/63; PULSE 80
[2023-12-25] MEDS: Enoxaparin 150 MG/1 ML Syringe SUBCUT STA (09:57)
== END 2023-12-25 10:11 ==
LOC: MW.ED 06:19
DX: I21.4 Non-ST elevation (NSTEMI) myocardial infarction (principal); I48.91 Unspecified atrial fibrillation; I50.9 Heart failure, unspecified; Z79.01 Long term (current) use of anticoagulants; Z79.899 Other long term (current) drug therapy; Z75.8 Other problems related to medical facilities and other health care
CPT/HCPCS: 36415; 71045; 80053; 83880; 84484; 85025; 85379; 93005; 96372; 96374; 99285; A9270; J1650; J2270; J3490; J7040; 93010

== ENCOUNTER 2024-11-14 16:03 | Emergency (ER) | payer BC, OTHER ==
[2024-11-14 17:20] LABS: BASOPHILS ABSOLUTE AUTO 0.06 K/uL (0.00-0.20); BASOPHILS PERCENT AUTO 0.5 % (0.0-1.0); EOSINOPHILS ABSOLUTE AUTO 0.13 K/uL (0.00-0.45); EOSINOPHILS PERCENT AUTO 1.1 % (0.0-6.0); HEMATOCRIT 50.4 % (42.0-52.0); HEMOGLOBIN 17.2 g/dL (14.0-18.0); IMMATURE GRAN ABSOLUTE AUTO 0.03 K/uL (0.00-0.05); IMMATURE GRAN PERCENT AUTO 0.3 % (0.0-0.4); LYMPHOCYTES ABSOLUTE AUTO 1.61 K/uL (1.00-4.80); LYMPHOCYTES PERCENT AUTO 13.5 % (24.0-44.0); MEAN CORPUSCULAR HEMOGLOBIN 30.8 pg (28.0-32.0); MEAN CORPUSCULAR HGB CONC 34.1 g/dL (32.0-36.0); MEAN CORPUSCULAR VOLUME 90.3 fL (83.0-99.0); MEAN PLATELET VOLUME 9.3 fL (9.4-12.4); MONOCYTES ABSOLUTE AUTO 0.77 K/uL (0.00-0.80); MONOCYTES PERCENT AUTO 6.4 % (0.0-8.0); NEUTROPHILS ABSOLUTE AUTO 9.37 K/uL (1.80-7.70); NEUTROPHILS PERCENT AUTO 78.2 % (41.0-71.0); PLATELET COUNT,PLT 270 K/uL (150-400); RED BLOOD CELL COUNT 5.58 M/uL (4.52-5.90); WHITE BLOOD CELL COUNT,WBC 11.97 K/uL (3.9-11.3)
[2024-11-14] MEDS: Sodium Chloride 0.9% 1,000 ML IV ONE (17:40)
[2024-11-14 17:45] LABS: A/G RATIO 1.2 (0.9-1.6); ALBUMIN 4.1 g/dL (3.4-5.0); BILIRUBIN TOTAL 0.8 mg/dL (0.2-1.0); CALCIUM 10.1 mg/dL (8.5-10.1); CARBON DIOXIDE,CO2 30.3 mmol/L (21.0-32.0); CREATININE 1.2 mg/dL (0.8-1.3); EST CRCL DRUG DOSING (CG) 77.57 mL/min; MAGNESIUM 2.1 mg/dL (1.8-2.4); POTASSIUM,K 4.2 mmol/L (3.5-5.1); PROTEIN TOTAL,TP 7.6 g/dL (6.4-8.2)
[2024-11-14 17:49] LABS: INR 1.05 (0.86-1.11)
[2024-11-14] MEDS: Iopamidol 755 MG/ML 500 ML Multipack Bottle IVPUSH STA (18:09)
[2024-11-14 20:11] VITALS: BP 142/90; PULSE 70
== END 2024-11-14 20:10 | disposition home or self-care (01) ==
LOC: MW.ED 16:03
DX: K92.1 Melena (principal); K57.30 Diverticulosis of large intestine without perforation or abscess without bleeding; Z75.3 Unavailability and inaccessibility of health-care facilities
CPT/HCPCS: 36415; 74174; 80053; 83690; 83735; 85025; 85610; 96360; 99284; J7030; Q9967; 99283

== ENCOUNTER 2024-12-02 06:57 | Day surgery (SDC) | payer BC, OTHER ==
[2024-12-02] MEDS: Lactated Ringers 1,000 ML IV SCH (07:45)
[2024-12-02] MEDS ORDERED: Lidocaine 2% 5 ML SDV ONE (07:55)
[2024-12-02] MEDS ORDERED: Propofol 200 MG/20 ML SDV ONE (07:55)
[2024-12-02] MEDS ORDERED: Lactated Ringers 1,000 ML IV SCH (08:45)
[2024-12-02 12:58] VITALS: BP 106/70; PULSE 80
== END 2024-12-02 09:25 | disposition home or self-care (01) ==
LOC: MW.SDS 06:57
PROVIDERS: ATTEND Surgery
DX: K57.31 Diverticulosis of large intestine without perforation or abscess with bleeding (principal); I10 Essential (primary) hypertension; E78.00 Pure hypercholesterolemia, unspecified; K21.9 Gastro-esophageal reflux disease without esophagitis; I48.91 Unspecified atrial fibrillation; Z79.01 Long term (current) use of anticoagulants; Z79.899 Other long term (current) drug therapy
CPT/HCPCS: 45378; J2003; J2704; J7120; 00811